=== PATIENT | female | born 1965 | race Caucasian/White ===

== ENCOUNTER 2017-01-01 11:40 | Emergency (ER) | payer OTHER ==
[2017-01-01 11:00] LABS: BASOPHILS ABSOLUTE 0.08 10/3/uL (0.0-0.16); EOSINOPHILS ABSOLUTE 0.17 10/3/uL (0.0-0.53); HEMATOCRIT 44.5 % (36.0-48.0); HEMOGLOBIN 16.1 g/dL (12.0-16.0); IMMATURE GRANULOCYTES 0.2 %; IMMATURE GRANULOCYTES ABSOLUTE 0.02 10/3/uL (0.0-0.11); LYMPHOCYTES 26.6 %; LYMPHOCYTES ABSOLUTE 2.23 10/3/uL (0.67-4.30); MEAN CORPUS HGB CONC 36.2 g/dL (32.0-36.0); MEAN CORPUSCULAR HEMOGLOB 33.1 pg (26.0-34.0); MEAN CORPUSCULAR VOLUME 91.6 fL (80-100); MEAN PLATELET VOLUME 11.2 fL (9.2-13.0); MONOCYTES 4.8 %; NEUTROPHILS 65.4 %; NEUTROPHILS ABSOLUTE 5.49 10/3/uL (2.02-8.40); PLATELET COUNT 180 10/3/uL (150-400); RBC DISTRIBUTION WIDTH 13.4 % (12.0-16.0); RED CELL COUNT 4.86 10/6/uL (4.0-5.6); WHITE BLOOD CELLS 8.4 10/3/uL (4.5-10.5)
[2017-01-01 11:01] LABS: MANUAL DIFF NO %
[2017-01-01 11:11] LABS: ASCORBIC ACID (UR NOT ORDER) 40 (NEG); BILIRUBIN, URINE NEGATIVE (NEG); ER URINALYSIS TAT 0 Hrs 15 Mins; KETONE, URINE TRACE MG/DL (NEG); LEUKOCYTE ESTERASE(NOT OR TRACE (NEG); NITRITE (URINE) NEG (NEG); WBC (NOT ORDERED) (RFLEX) 4 (0-5)
[2017-01-01 11:15] LABS: A/G RATIO 1.1 (0.7-1.9); ALKALINE PHOSPHATASE 131 U/L (45-117); BUN (BLOOD UREA NITROGEN) 9 MG/DL (6-23); CALCIUM, SERUM 8.9 MG/DL (8.5-10.4); CHLORIDE, SERUM 111 MMOL/L (96-112); CO2 (CARBON DIOXIDE) 30 MMOL/L (24-34); CREATININE 0.85 MG/DL (0.55-1.02); GFR AFRICAN AMERICAN 93 ML/MIN (>=60); GFR NON AFRICAN AMERICAN 80 ML/MIN (>=60); GLOBULIN 3.8 G/DL (2.5-4.1); GLUCOSE, SERUM 93 MG/DL (60-99); POTASSIUM, SERUM 3.8 MMOL/L (3.5-5.3); SGOT(AST) 58 U/L (5-40); SGPT(ALT) 72 U/L (5-65); SODIUM, SERUM 146 MMOL/L (135-148); TOTAL BILIRUBIN 1.3 MG/DL (0-1.2); TOTAL PROTEIN 7.8 G/DL (6.0-8.5)
== END 2017-01-01 11:45 | disposition home or self-care (01) ==
LOC: ER 11:40
PROVIDERS: Nurse Practitioner Acute Care
DX: R10.30 Lower abdominal pain, unspecified (principal); F17.210 Nicotine dependence, cigarettes, uncomplicated
CPT/HCPCS: 74176; 80053; 81001; 85025; 99284